=== PATIENT | female | born 1955 | race Caucasian/White ===

== ENCOUNTER → 2016-10-22 | Outpatient (CLI) | payer BC ==
[~2016-10-22] MED LIST: ALBUAER INH; ASPI81TA28 PO; ATOR10TA82 PO; CALC600T9 PO; COEN1TAB3 PO; DILT-115 PO; FERR1TAB13 PO; FRS/40 PO; INSPMPNVLG; LEVO112T4 PO; LOSA50TA6 PO; MULT-506 PO; SERT50TA PO
--- NOTE | 2016-10-22 15:33 | DIAGNOSTIC IMAGING REPORT ---
CHEST 2 VIEWS ROUTINE CLINICAL HISTORY: COUGH dyspnea COMPARISON STUDY: 01/20/2014 FINDINGS: Potential nodular density left midlung. Lungs otherwise are clear. Diaphragms smooth. No evidence for cardiac enlargement. IMPRESSION: Nodular density versus overlap artifact left midlung. CT of the chest is recommended as follow-up. Electronically signed by: Jayson Florez M.D. 10/22/2016 3:31 PM Dictated Date/Time: 10/22/2016 3:25 PM
== END | disposition home or self-care (01) ==
LOC: C.RAD1850 15:09
PROVIDERS: ATTEND Internal Medicine Geriatric Medicine
DX: R05 Cough (principal)

== ENCOUNTER → 2016-10-26 | Outpatient (CLI) | payer BC ==
--- NOTE | 2016-10-26 08:55 | DIAGNOSTIC IMAGING REPORT ---
CT SCAN OF THE CHEST WITHOUT IV CONTRAST CLINICAL HISTORY: Abnormal chest x-ray. Questioned pulmonary nodule. Cough. COMPARISON STUDY: Chest x-ray dated 10/22/2016. TECHNIQUE: CT scan of the thorax was performed from the thoracic inlet to the upper abdomen. Images are reviewed in the axial, sagittal, and coronal planes. IV contrast was not administered for this examination. CT DOSE: 249.97 mGy.cm FINDINGS: Thyroid: Atrophic. Thoracic aorta: The thoracic aorta is normal in caliber and demonstrates standard 3-vessel arch anatomy. Heart: The heart is top normal in size and there is a trace pericardial effusion. Lungs and pleural spaces: Small fat-containing Bochdalek hernias are present at both lung bases. No airspace consolidation or pleural effusion is evident. The trachea and central airways are clear. There is a 12 mm focus of pleural-based thickening in the left lower lobe seen on image #167. A 7 mm left lower lobe pulmonary nodule is seen on image #216. A 3 mm right lower lobe nodules identified on image #184. There are scattered tiny calcified granulomas. Mediastinum: There is no mediastinal lymphadenopathy. Carol: Not well assessed without IV contrast. Axillae: There is no axillary lymphadenopathy. Upper abdomen: There is a small hiatal hernia. Partially visualized upper abdominal viscera is otherwise within normal limits. Skeletal structures: The skeletal structures are osteopenic. No lytic or blastic bony lesions are seen. IMPRESSION: 1. There is no airspace consolidation or pleural effusion. 2. There is a 12 mm lobular focus of pleural thickening in the left lower lobe as well as a 7 mm left lower lobe pulmonary nodule. These lesions are indeterminant, and it is unclear if the pleural-based density corresponds to the findings suggestive by chest x-ray. These lesions warrant CT follow-up. See below. 3. Hiatal hernia. Please refer to below summary of Fleischner criteria recommendations for follow-up of incidental CT nodules (Lisa Ritter, Guidelines for management of small pulmonary nodules detected on CT scans: A statement from the Fleischner Society, Radiology 237: [phone].) SOLID NODULES Solitary nodule size: <6 mm * low risk patients: no follow-up needed * high risk patients: optional CT at 12 months Solitary nodule size: 6-8 mm * low risk patients: follow-up at 6-12 months, then consider further follow-up at 18-24 months * high risk patients: initial follow-up CT at 6-12 months and then at 18-24 months if no change Solitary nodule size: >8 mm * either low or high risk patients - consider follow-up CT at 3 months, and/or CT-PET, and/or biopsy Multiple nodules size: <6 mm * low risk patients: no routine follow-up * high risk patients: optional CT at 12 months Multiple nodules size: 6-8 mm * low risk patients: follow-up at 3-6 months, then consider further follow-up at 18-24 months * high risk patients: follow-up at 3-6 months, then at 18-24 months if no change Multiple nodules size: >8 mm * low risk patients: follow-up at 3-6 months, then consider further follow-up at 18-24 months * high risk patients: follow-up at 3-6 months, then at 18-24 months if no change Note: newly detected indeterminate nodule in persons 35 years of age or older. * low risk patients: minimal or absent history of smoking and/or other known risk factors * high risk patients: history of smoking or of other known risk factors (e.g. first degree relative with lung cancer, or exposure to asbestos, radon, uranium) * if a nodule up to 8 mm is partly solid or is ground glass further follow-up is required after 24 months to exclude possible slow growing adenocarcinoma (JUAN) SUBSOLID NODULES Solitary pure ground-glass nodule * nodule size <6 mm - no CT follow-up required * nodule size >=6 mm - follow-up CT at 6-12 months, then every 2 years until 5 years Solitary part-solid nodule * nodule size <6 mm - no CT follow-up required * nodule size >=6 mm - follow-up CT at 3-6 months. If unchanged, and solid component remains <6 mm, then annual follow-up for 5 years Multiple subsolid nodules * nodule size <6 mm - follow-up CT at 3-6 months, consider further follow-up at 2 and 4 years if stable * nodule size >=6 mm - follow-up CT at 3-6 months, subsequent management based on the most suspicious nodule(s) Electronically signed by: Brenden Valenzuela M.D. 10/26/2016 8:53 AM Dictated Date/Time: 10/26/2016 8:45 AM
== END | disposition home or self-care (01) ==
LOC: C.CTS 08:26
PROVIDERS: ATTEND Internal Medicine Geriatric Medicine
DX: R93.8 Abnormal findings on diagnostic imaging of other specified body structures (principal); R05 Cough

== ENCOUNTER → 2017-03-13 | Outpatient (CLI) | payer BC ==
--- NOTE | 2017-03-13 07:47 | DIAGNOSTIC IMAGING REPORT ---
(CHEST) THORAX WITHOUT CT DOSE: 410.90 mGycm CLINICAL HISTORY: 61 years-old Female with R91.1 Lung [id number]. Pulmonary nodule follow-up study. No acute chest complaints. TECHNIQUE: Multiaxial CT images of the chest were performed without contrast. A dose lowering technique was utilized adhering to the principles of ALARA. COMPARISON: CT chest 10/26/2016. FINDINGS: No dominant thyroid nodule identified. Mildly prominent nonspecific bilateral axillary lymph nodes are seen measuring up to 7 mm in short axis, unchanged and likely physiologic. The heart is normal in size without pericardial effusion. Thoracic aorta is normal in both course and caliber. There is mild atherosclerotic plaquing of the superior mesenteric artery. There is no pneumothorax or pleural effusion. Small bilateral Bochdalek hernias are present. There is minimal dependent bibasilar atelectasis. There is unchanged focal area of pleural thickening adjacent to the superior segment left lower lobe on image 156, 12 mm which is unchanged. Previously noted 7 mm pulmonary nodule of the lateral basal segment left lower lobe is again noted and appears to abut an accessory fissure in this distribution suggesting perifissural lymph node. This has not increased in size from comparison. Additionally, there is linear subsegmental pleural parenchymal scarring adjacent to this nodule. Additional 3 mm noncalcified pulmonary nodule of the basal right lower lobe seen on image 189 is unchanged. No additional pulmonary nodules are identified. There is a calcified granuloma of the lateral segment right middle lobe, 3 mm. Central airways are patent. Imaged upper abdominal structures are within normal limits. Small sliding type hiatal hernia is seen. Bones are intact. Multilevel endplate spurring and intervertebral disc space narrowing. IMPRESSION: 1. No acute intrathoracic abnormality identified. 2. Unchanged 12 mm nodular focus of pleural thickening adjacent to the left lower lobe as above measures up to 12 mm. 3. 7 mm pulmonary nodule of the lateral basal segment left lower lobe appears linear on the sagittal and coronal images and appears to abut an accessory fissure suggesting perifissural lymph node or linear pleural parenchymal scarring and is unchanged. As a precautionary measure, additional six-month follow-up CT may be considered. 4. Small hiatal hernia. Please refer to below summary of Fleischner criteria recommendations for follow-up of incidental CT nodules (Lisa Ritter, Guidelines for management of small pulmonary nodules detected on CT scans: A statement from the Fleischner Society, Radiology 237: [phone].) SOLID NODULES Solitary nodule size: <6 mm * Low risk patients: no follow-up needed * high risk patients: optional CT at 12 months Solitary nodule size: 6-8 mm * Low risk patients: follow-up at 6-12 months, then consider further follow-up at 18-24 months * high risk patients: initial follow-up CT at 6-12 months and then at 18-24 months if no change Solitary nodule size: >8 mm * either low or high risk patients - consider follow-up CT at 3 months, and/or CT-PET, and/or biopsy Multiple nodules size: <6 mm * Low risk patients: no routine follow-up * high risk patients: optional CT at 12 months Multiple nodules size: 6-8 mm * Low risk patients: follow-up at 3-6 months, then consider further follow-up at 18-24 months * high risk patients: follow-up at 3-6 months, then at 18-24 months if no change Multiple nodules size: >8 mm * Low risk patients: follow-up at 3-6 months, then consider further follow-up at 18-24 months * high risk patients: follow-up at 3-6 months, then at 18-24 months if no change Note: newly detected indeterminate nodule in persons 35 years of age or older. * Low risk patients: minimal or absent history of smoking and/or other known risk factors * high risk patients: history of smoking or of other known risk factors (e.g. first degree relative with lung cancer, or exposure to asbestos, radon, uranium) * if a nodule up to 8 mm is partly solid or is ground glass further follow-up is required after 24 months to exclude possible slow growing adenocarcinoma (JUAN) SUBSOLID NODULES Solitary pure ground-glass nodule * nodule size <6 mm - no CT follow-up required * nodule size >=6 mm - follow-up CT at 6-12 months, then every 2 years until 5 years Solitary part-solid nodule * nodule size <6 mm - no CT follow-up required * nodule size >=6 mm - follow-up CT at 3-6 months. If unchanged, and solid component remains <6 mm, then annual follow-up for 5 years Multiple subsolid nodules * nodule size <6 mm - follow-up CT at 3-6 months, consider further follow-up at 2 and 4 years if stable * nodule size >=6 mm - follow-up CT at 3-6 months, subsequent management based on the most suspicious nodule(s) The above report was generated using voice recognition software. It may contain grammatical, syntax or spelling errors. Electronically signed by: Harley Hu M.D. 03/13/2017 7:46 AM Dictated Date/Time: 03/13/2017 7:34 AM
== END | disposition home or self-care (01) ==
LOC: C.CTS 07:03
PROVIDERS: ATTEND Internal Medicine Geriatric Medicine
DX: R91.1 Solitary pulmonary nodule (principal)

== ENCOUNTER → 2017-05-29 | Outpatient (CLI) | payer BC ==
--- NOTE | 2017-05-31 08:14 | MAMMOGRAPHY REPORT ---
BILATERAL DIGITAL SCREENING MAMMOGRAM TOMOSYNTHESIS WITH CAD: 05/29/2017 CLINICAL HISTORY: Routine screening. Patient has no complaints. TECHNIQUE: Breast tomosynthesis in addition to standard 2D mammography was performed. Current study was also evaluated with a Computer Aided Detection (CAD) system. COMPARISON: Comparison is made to exams dated: 03/28/2016 mammogram, 03/25/2015 mammogram, 03/23/2014 m ammogram, 03/20/2013 mammogram, 03/17/2012 mammogram, and 03/12/2012 mammogram - [facility] nter. BREAST COMPOSITION: There are scattered areas of fibroglandular density in both breasts. FINDINGS: There are mild vascular calcifications in both breasts. The glandular pattern is similar to prior mammograms. No new suspicious mass, architectural distortion or cluster of microcalcifications is seen. IMPRESSION: ACR BI-RADS CATEGORY 2: BENIGN There is no mammographic evidence of malignancy. A 1 year screening mammogram is recommended. The pa tient will receive written notification of the results. Approximately 10% of breast cancers are not detected with mammography. A negative mammographic report should not delay biopsy if a clinically suggestive mass is present. Thais Solis M.D. ay/:05/29/2017 16:16:56 Parachute Folder: Jacquelin Perrin, [facility] letter sent: Normal 1/2 BI-RADS Code: ACR BI-RADS Category 2: Benign
== END | disposition home or self-care (01) ==
LOC: C.MAMM 13:34
PROVIDERS: ATTEND Internal Medicine Geriatric Medicine
DX: Z12.31 Encounter for screening mammogram for malignant neoplasm of breast (principal)

== ENCOUNTER → 2017-06-05 | Day surgery (SDC) | payer BC ==
[2017-05-23 14:38] VITALS: Ht 162.6 cm; Wt 88.6 kg
[~2017-06-05] VITALS: Ht 162.6 cm; Wt 88.6 kg
[~2017-06-05] MED LIST changes: +LIDOCAINE HCL 2% 2 ML VIAL (20MG/ML) ONE; +PROPOFOL IV EMULSION 10 MG/ML 20 ML VIAL IV ONE
[2017-06-05 12:53] VITALS: TEMP 36.7
--- NOTE | 2017-06-05 13:04 | Endo History and Physical ---
History & Physical Date of Service: Jun 05, 2017. Chief Complaint: Anemia Referring Physician: Fanny History of Present Illness 61 yo CF who presents for Colonoscopy secondary to anemia. Past Surgical History Hx Cardiac Surgery: No Hx Internal Defibrillator: No Hx Pacemaker: No Hx Abdominal Surgery: No Hx of Implantable Prosthesis: No Hx Post-Op Nausea and Vomiting: No Hx Cancer Surgery: No Hx Thoracic Surgery: No Hx Orthopedic: No Hx Urinary Tract Surgery: No Family History None Social History Smoking Status: Never Smoker Hx Substance Use: No Hx Alcohol Use: No Allergies Coded Allergies: Cephalexin (Verified Adverse Reaction, Unknown, GI UPSET, 05/23/17) Clarithromycin (Verified Adverse Reaction, Unknown, GI UPSET, 05/23/17) Current Medications Reported Home Medications Medications Dose Route/Sig Max Daily Dose Days Date Category Proventil Hfa (Albuterol Sulfate) 108 Mcg/Act Aer 2 Puffs INH Q4H PRN 05/23/17 Reported Lipitor (Atorvastatin Calcium) 10 Mg Tab 10 Mg PO HS 05/23/17 Reported Calcium + D (Calcium Carbonate-Vitamin D) 1 Tab Tab 1 Tab PO DAILY 05/23/17 Reported Kp Ferrous Sulfate (Ferrous Sulfate) 325 Mg Tab 1 Tab PO DAILY 05/23/17 Reported Aspirin Ec (Aspirin) 81 Mg Tab 81 Mg PO DAILY 05/23/17 Reported Multivitamin (Multivitamins) Tab 1 Tab PO DAILY 05/23/17 Reported Coenzyme Q10 (Coenzyme Q10 (Ubidecarenone)) 100 Mg Tab 1 Tab PO BID 05/23/17 Reported Lasix (Furosemide) 40 Mg Tab 40 Mg PO BID 05/23/17 Reported Cozaar (Losartan Potassium) 50 Mg Tab 50 Mg PO NOON 05/23/17 Reported Tiazac (Diltiazem HCl) 240 Mg Capcr 240 Mg PO NOON 05/23/17 Reported Zoloft (Sertraline HCl) 50 Mg Tab 50 Mg PO QAM 05/23/17 Reported Levothyroxine Sodium 112 Mcg Tab 1 Tab PO QAM 05/23/17 Reported novoLOG INSULIN PUMP (Insulin Aspart) 1 Ea Inj 1 Ea N/A UD 05/23/17 Reported Vital Signs Weight (Kilograms): 88.64 Height (Feet): 5 Height (Inches): 4 Physical Exam General Appearance: WD/WN, no apparent distress Respiratory/Chest: Auscultation: breath sounds normal Cardiovascular: Heart Auscultation: RRR Abdomen: Bowel Sounds: normal Inspection & Palpation: soft, non-distended, no tenderness, guarding & rebound Assessment and Plan Assessment: 61 yo CF who presents for Colonoscopy secondary to anemia. Plan: Proceed with colonoscopy.
--- NOTE | 2017-06-05 13:59 | Discharge Instructions ---
Endoscopy Patient Instructions Date / Procedure(s) Performed Jun 05, 2017. Colonoscopy Allergy Information Coded Allergies: Cephalexin (Verified Adverse Reaction, Unknown, GI UPSET, 05/23/17) Clarithromycin (Verified Adverse Reaction, Unknown, GI UPSET, 05/23/17) Discharge Date / Findings Jun 05, 2017. Colon polyp Internal hemorrhoids Medication Instructions OK to resume all medications today as prescribed Reported Home Medications Medications Dose Route/Sig Max Daily Dose Days Date Category Proventil Hfa (Albuterol Sulfate) 108 Mcg/Act Aer 2 Puffs INH Q4H PRN 05/23/17 Reported Lipitor (Atorvastatin Calcium) 10 Mg Tab 10 Mg PO HS 05/23/17 Reported Calcium + D (Calcium Carbonate-Vitamin D) 1 Tab Tab 1 Tab PO DAILY 05/23/17 Reported Kp Ferrous Sulfate (Ferrous Sulfate) 325 Mg Tab 1 Tab PO DAILY 05/23/17 Reported Aspirin Ec (Aspirin) 81 Mg Tab 81 Mg PO DAILY 05/23/17 Reported Multivitamin (Multivitamins) Tab 1 Tab PO DAILY 05/23/17 Reported Coenzyme Q10 (Coenzyme Q10 (Ubidecarenone)) 100 Mg Tab 1 Tab PO BID 05/23/17 Reported Lasix (Furosemide) 40 Mg Tab 40 Mg PO BID 05/23/17 Reported Cozaar (Losartan Potassium) 50 Mg Tab 50 Mg PO NOON 05/23/17 Reported Tiazac (Diltiazem HCl) 240 Mg Capcr 240 Mg PO NOON 05/23/17 Reported Zoloft (Sertraline HCl) 50 Mg Tab 50 Mg PO QAM 05/23/17 Reported Levothyroxine Sodium 112 Mcg Tab 1 Tab PO QAM 05/23/17 Reported novoLOG INSULIN PUMP (Insulin Aspart) 1 Ea Inj 1 Ea N/A UD 05/23/17 Reported Provider Instructions Activity Restrictions - No exercising or heavy lifting for 24 hours. - Do not drink alcohol the day of the procedure. - Do not drive a car or operate machinery until the day after the procedure. - Do not make any important decisions or sign important papers in 24 hours after the procedure. Following Day: - Return to full activity which may include returning to work/school. Diet Start your diet with liquids and light foods (jello, soup, juice, toast). Then eat your usual diet if not nauseated. Treatment For Common After Affects For mild abdominal pain, bloating, or excessive gas: - Rest - Eat lightly - Lie on right side Follow-Up Information Follow-up with as scheduled Anesthesia Information What You Should Know You have had a procedure that required some medicine to reduce anxiety and discomfort. This treatment is called moderate sedation. After receiving the treatment, you may be sleepy, but you will be able to breathe on your own. The effects of the treatment may last for several hours. Follow these instructions along with Activity/Diet recommendations noted above: * Do NOT do anything where dizziness or clumsiness would be dangerous. * Rest quietly at home today, then you can be up and about tomorrow. * Have a responsible person stay with you the rest of today. * You may have had an I.V. today. If so, you may take the dressing off later today. Recommendations Call your doctor if: * Trouble breathing * Continuous vomiting for more than 24 hours * Temperature above 101 degrees * Severe abdominal pain or bloating * Pain not relieved by pain medicine ordered * There is increased drainage or redness from any incision * A large amount of rectal bleeding greater than 2-3 tablespoons. (If you had a polyp/s removed or have hemorrhoids, a small amount of blood - from the rectum is to be expected.) * You have any unanswered questions or concerns. IN THE EVENT OF A SERIOUS EMERGENCY, GO TO THE NEAREST EMERGENCY ROOM Your discharge instructions were prepared by provider Remberto Barry. Patient Instructions Signature Page Sun Arellano Patient (or Guardian) Signature/Date: I have read and understand the instructions given to me by my caregivers. Caregiver/RN/Doctor Signature/Date: The above-named patient and/or guardian has received patient instructions on this date. + Original Patient Signature Page (only) stays with chart. Please make copy for patient.
--- NOTE | 2017-06-05 14:06 | GI REPORT ---
Procedure Date: 06/05/2017 12:43 PM Procedure: Colonoscopy Indications: Iron deficiency anemia Medicines: Monitored Anesthesia Care Complications: No immediate complications. Estimated Blood Loss: Estimated blood loss: none. Procedure: Pre-Anesthesia Assessment: - Prior to the procedure, a History and Physical was performed, and patient medications and allergies were reviewed. The patient's tolerance of previous anesthesia was also reviewed. The risks and benefits of the procedure and the sedation options and risks were discussed with the patient. All questions were answered, and informed consent was obtained. Prior Anticoagulants: The patient has taken aspirin, last dose was 1 day prior to procedure. ASA Grade Assessment: II - A patient with mild systemic disease. After reviewing the risks and benefits, the patient was deemed in satisfactory condition to undergo the procedure. After I obtained informed consent, the scope was passed under direct vision. Throughout the procedure, the patient's blood pressure, pulse, and oxygen saturations were monitored continuously. The Scope was introduced through the anus and advanced to the cecum, identified by appendiceal orifice and ileocecal valve. The colonoscopy was performed without difficulty. The patient tolerated the procedure well. The quality of the bowel preparation was good. The terminal ileum, ileocecal valve, appendiceal orifice, and rectum were photographed. Findings: The perianal and digital rectal examinations were normal. A 3 mm polyp was found in the transverse colon. The polyp was sessile. The polyp was removed with a cold snare. Resection and retrieval were complete. Non-bleeding internal hemorrhoids were found during retroflexion. The hemorrhoids were small. Impression: - One 3 mm polyp in the transverse colon, removed with a cold snare. Resected and retrieved. - Non-bleeding internal hemorrhoids. Recommendation: - Resume previous diet. - Continue present medications. - Repeat colonoscopy for surveillance based on pathology results. - Return to primary care physician as previously scheduled. Remberto Barry DO 06/05/2017 2:06:32 PM This report has been signed electronically. Note Initiated On: 06/05/2017 12:43 PM I attest to the content of the Intraoperative Record and orders documented therein, exceptions below
--- NOTE | 2017-06-05 14:21 | Anesthesiology Progress Note ---
Anesthesia Post Op Note Date & Time Jun 05, 2017 at 14:21 Vital Signs Pain Intensity: 0 Vital Signs Past 12 Hours Date Time Temp Pulse Resp B/P (MAP) Pulse Ox O2 Delivery O2 Flow Rate FiO2 06/05/17 14:09 69 12 143/73 (96) 99 Room Air 06/05/17 13:54 64 12 127/67 (87) 99 Room Air 06/05/17 12:53 36.7 74 18 150/75 (100) 98 Room Air Notes Mental Status: alert / awake / arousable, participated in evaluation Pt Amnestic to Procedure: Yes Nausea / Vomiting: adequately controlled Pain: adequately controlled Airway Patency, RR, SpO2: stable & adequate BP & HR: stable & adequate Hydration State: stable & adequate Anesthetic Complications: no major complications apparent
[2017-06-05 14:24] VITALS: BP 147/80; PULSE 71; O2SAT 98
== END | disposition home or self-care (01) ==
LOC: C.GI 12:10
PROVIDERS: ATTEND Internal Medicine
DX: D50.9 Iron deficiency anemia, unspecified (principal); D12.3 Benign neoplasm of transverse colon; K64.8 Other hemorrhoids; E11.9 Type 2 diabetes mellitus without complications; E03.9 Hypothyroidism, unspecified; Z79.4 Long term (current) use of insulin; I10 Essential (primary) hypertension; E78.5 Hyperlipidemia, unspecified; J45.909 Unspecified asthma, uncomplicated; E66.9 Obesity, unspecified; Z79.82 Long term (current) use of aspirin

== ENCOUNTER → 2017-08-29 | Outpatient (CLI) | payer OTHER ==
[~2017-08-29] MED LIST changes: -LIDOCAINE HCL 2% 2 ML VIAL (20MG/ML) ONE; -PROPOFOL IV EMULSION 10 MG/ML 20 ML VIAL IV ONE
--- NOTE | 2017-08-29 08:23 | DIAGNOSTIC IMAGING REPORT ---
CT SCAN OF THE CHEST WITHOUT IV CONTRAST CLINICAL HISTORY: Pulmonary nodule follow-up. COMPARISON STUDY: Chest CT scans dated 03/13/2017 and 10/26/2016. TECHNIQUE: CT scan of the thorax was performed from the thoracic inlet to the upper abdomen. Images are reviewed in the axial, sagittal, and coronal planes. IV contrast was not administered for this examination. A dose lowering protocol was utilized adhering to the principles of ALARA. CT DOSE: 247.82 mGy.cm FINDINGS: Thyroid: Atrophic. Thoracic aorta: The thoracic aorta is normal in caliber and demonstrates standard 3-vessel arch anatomy. Heart: The heart is top normal in size and there is a small pericardial effusion. Scattered coronary artery calcifications are observed. Lungs and pleural spaces: Small fat-containing Bochdalek hernias are present at both lung bases. No airspace consolidation or pleural effusion is evident. The trachea and central airways are clear. There is a 13 mm focus of pleural-based thickening in the left lower lobe seen on image #159. A 7 mm left lower lobe pulmonary nodule is seen on image #195. A 4 mm right lower lobe nodules identified on image #179. There are scattered tiny calcified granulomas. No new pulmonary nodule is identified. Mediastinum: There is no mediastinal lymphadenopathy. Carol: Not well assessed without IV contrast. Axillae: There shotty axillary lymph nodes. Upper abdomen: There is a small hiatal hernia. Partially visualized upper abdominal viscera is otherwise within normal limits. Skeletal structures: The skeletal structures are osteopenic. No lytic or blastic bony lesions are seen. IMPRESSION: 1. There is no airspace consolidation or pleural effusion. 2. There is unchanged appearance of pulmonary and pleural-based nodules as compared to studies dating back to 10/26/2016. No new pulmonary nodule is identified. Continued follow-up is recommended as per the Fleischner criteria to document 2 years of stability. See below. 3. Hiatal hernia. Please refer to below summary of Fleischner criteria recommendations for follow-up of incidental CT nodules (Lisa Ritter, Guidelines for management of small pulmonary nodules detected on CT scans: A statement from the Fleischner Society, Radiology 237: [phone].) SOLID NODULES Solitary nodule size: <6 mm * low risk patients: no follow-up needed * high risk patients: optional CT at 12 months Solitary nodule size: 6-8 mm * low risk patients: follow-up at 6-12 months, then consider further follow-up at 18-24 months * high risk patients: initial follow-up CT at 6-12 months and then at 18-24 months if no change Solitary nodule size: >8 mm * either low or high risk patients - consider follow-up CT at 3 months, and/or CT-PET, and/or biopsy Multiple nodules size: <6 mm * low risk patients: no routine follow-up * high risk patients: optional CT at 12 months Multiple nodules size: 6-8 mm * low risk patients: follow-up at 3-6 months, then consider further follow-up at 18-24 months * high risk patients: follow-up at 3-6 months, then at 18-24 months if no change Multiple nodules size: >8 mm * low risk patients: follow-up at 3-6 months, then consider further follow-up at 18-24 months * high risk patients: follow-up at 3-6 months, then at 18-24 months if no change Note: newly detected indeterminate nodule in persons 35 years of age or older. * low risk patients: minimal or absent history of smoking and/or other known risk factors * high risk patients: history of smoking or of other known risk factors (e.g. first degree relative with lung cancer, or exposure to asbestos, radon, uranium) * if a nodule up to 8 mm is partly solid or is ground glass further follow-up is required after 24 months to exclude possible slow growing adenocarcinoma (JUAN) SUBSOLID NODULES Solitary pure ground-glass nodule * nodule size <6 mm - no CT follow-up required * nodule size >=6 mm - follow-up CT at 6-12 months, then every 2 years until 5 years Solitary part-solid nodule * nodule size <6 mm - no CT follow-up required * nodule size >=6 mm - follow-up CT at 3-6 months. If unchanged, and solid component remains <6 mm, then annual follow-up for 5 years Multiple subsolid nodules * nodule size <6 mm - follow-up CT at 3-6 months, consider further follow-up at 2 and 4 years if stable * nodule size >=6 mm - follow-up CT at 3-6 months, subsequent management based on the most suspicious nodule(s) Electronically signed by: Brenden Valenzuela M.D. 08/29/2017 8:21 AM Dictated Date/Time: 08/29/2017 8:15 AM
== END | disposition home or self-care (01) ==
LOC: C.CTS 08:03
PROVIDERS: ATTEND Internal Medicine Geriatric Medicine
DX: R91.8 Other nonspecific abnormal finding of lung field (principal); K44.9 Diaphragmatic hernia without obstruction or gangrene